=== PATIENT | female | born 1970 | race Caucasian/White ===

== ENCOUNTER 2021-11-27 17:31 | Emergency (ER) | payer OTHER ==
[2021-11-27 17:55] VITALS: BP 137/81; PULSE 89; TEMP 99.6; BMI 42.0
[2021-11-27] MEDS ORDERED: DEXAMETHASONE SOD PHOSPHATE 10 MG/1 ML VIAL IM ONE (18:01)
[2021-11-27] MEDS ORDERED: DEXAMETHASONE SOD PHOSPHATE 10 MG/1 ML VIAL ONE (18:17)
[2021-11-27] MEDS ORDERED: ALBUTEROL SO4 2.5/IPRATROPIUM 0.5 INH SOL 3 ML VIAL.NEB. NEB ONE (18:17)
[2021-11-27] MEDS: ALBUTEROL SO4 2.5/IPRATROPIUM 0.5 INH SOL 3 ML VIAL.NEB. NEB SCH (19:33)
[2021-11-28 14:08] LABS: SARS-CoV-2 NAA Not Detected (Not Detected)
== END 2021-11-27 21:16 | disposition home or self-care (01) ==
LOC: JER 17:31
PROC: 3E0F7GC Introduction of Other Therapeutic Substance into Respiratory Tract, Via Natural or Artificial Opening (ICD-10-PCS; principal; 2021-11-27)
PROC: 3E023GC Introduction of Other Therapeutic Substance into Muscle, Percutaneous Approach (ICD-10-PCS; 2021-11-27)
DX: J09.X2 Influenza due to identified novel influenza A virus with other respiratory manifestations (principal)
CPT/HCPCS: 71046-TC-FY; 87804; 94640; 96372; 99284-25; C9803-CS; J1100; U0003; U0005

== ENCOUNTER 2021-12-30 10:56 | Emergency (ER) | payer OTHER ==
[2021-12-30 11:11] VITALS: BP 131/81; PULSE 99; TEMP 98.5; BMI 32.6
[2021-12-30] MEDS ORDERED: IBUPROFEN 600 MG TABLET (FP) PO ONE (13:38)
== END 2021-12-30 13:58 | disposition home or self-care (01) ==
LOC: JERFT 10:56
DX: M25.522 Pain in left elbow (principal); M25.562 Pain in left knee
CPT/HCPCS: 73070-TC-LT-FY; 73562-TC-LT-FY; 99284-25